=== PATIENT | female | born 1950 | race African-American/Black ===

== ENCOUNTER 2020-05-26 14:15 | Inpatient (IN) ==
[2020-05-26] MEDS ORDERED: 0.9 % Sodium Chloride 1,000 ML IVC ONE ×2 (15:05→20:55)
[2020-05-26 15:58] LABS: Basophils % 0.1 %; Eosinophils % 0.4 %
[2020-05-26 16:00] LABS: Hematocrit 37.7 % (35.3-44.9); Hemoglobin 12.1 g/dL (11.5-15.4); Immature Granulocytes % 1.1 % (0-4); Immature Platelets 8.9 % (1.1-6.1); Lymphocytes # 0.8 K/mcL (0.6-4.6); Lymphocytes % 9.5 %; Mean Corpuscular HGB Conc 32.1 g/dL (31.6-35.5); Mean Corpuscular Hemoglobin 31.7 pg (28.0-33.3); Mean Corpuscular Volume 98.7 fL (83.0-100.0); Mean Platelet Volume 12.7 fL (9.4-12.4); Monocytes # 1.5 K/mcL (0.0-1.3); Neutrophils # 5.5 K/mcL (1.6-8.9); Red Blood Count 3.82 M/mcL (3.82-4.97); Red Cell Distribution Width 14.4 % (11.5-14.5); Segmented Neutrophils % 69.9 %; White Blood Count 7.9 K/mcL (4.3-11.1)
[2020-05-26 16:06] LABS: INR 1.2; Prothrombin Time 13.8 Seconds (9.4-12.1)
[2020-05-26 16:09] LABS: Activated Partial Thrombo Time 86.5 Seconds (26.0-36.0)
[2020-05-26 16:13] LABS: BUN/Creatinine Ratio 15 (6-26); Blood Urea Nitrogen 34 mg/dL (8-23); Calcium 8.6 mg/dL (8.6-10.3); Carbon Dioxide 29 mEq/L (23-29); Chloride 99 mEq/L (98-107); Glucose 212 mg/dL (70-105); Osmolality,Calculated 296 (280-300); Potassium 3.5 mEq/L (3.5-5.1); Sodium 136 mEq/L (136-145); Troponin I < 0.03 ng/mL (< 0.04); eGFR For African Americans 25 (> 60); eGFR For Non-African Americans 21 (> 60)
[2020-05-26 16:17] LABS: Platelet Count 66 K/mcL (140-400)
[2020-05-26 16:18] LABS: Platelet Estimate Decreased (Normal)
[2020-05-26] MEDS ORDERED: MetroNIDAZOLE 500 MG/100 ML 500 MG/100 ML BAG IVPB ONE (18:15)
[2020-05-26 19:29] LABS: Adenovirus F 40/41 PCR Not detected (Not detect); Astrovirus PCR Not detected (Not detect); C.difficile Toxin A/B Gene PCR Not detected (Not detect); Campylobacter by PCR DETECTED (Not detect); Cryptosporidium by PCR Not detected (Not detect); Cyclospora cayetanensis PCR Not detected (Not detect); E. coli O157 by PCR Not detected (Not detect); Entamoeba histolytica PCR Not detected (Not detect); Enteroaggregative E.coli(EAEC) Not detected (Not detect); Enteropathogenic E.coli(EPEC) Not detected (Not detect); Enterotoxigenic E.coli (ETEC) Not detected (Not detect); Giardia lamblia PCR Not detected (Not detect); Norovirus GI/GII PCR Not detected (Not detect); Plesiomonas shigelloides PCR Not detected (Not detect); Rotavirus A PCR Not detected (Not detect); Salmonella PCR Not detected (Not detect); Sapovirus PCR Not detected (Not detect); Shig/EnteroinvasiveE coli EIEC Not detected (Not detect); Shigalike tox-prod E coli STEC Not detected (Not detect); Vibrio PCR Not detected (Not detect); Vibrio cholerae PCR Not detected (Not detect); Yersinia enterocolitica PCR Not detected (Not detect)
[2020-05-26 19:43] LABS: Bacteria,Urine Moderate per hpf (None-Few); Bilirubin,Urine Negative (Negative); Blood,Urine Moderate (Negative); Clarity,Urine Ex.Turbid (Clear); Color,Urine Dark-Yellow (Yellow); Glucose,Urine (UA) Normal (Normal); Ketones,Urine Negative (Negative); Leukocyte Esterase,Urine Large (Negative); Nitrite,Urine Negative (Negative); PH,Urine 5.5 pH Units (5.0-8.0); Protein,Urine 200 mg/dL (Neg-Trace); Renal Epithelial Cells,Urine Few per hpf (None-Few); Specific Gravity,Urine 1.012 (1.010-1.025); Squamous Epithelial Cell,Urine Moderate per hpf (None-Few); WBC,Urine TNTC per hpf (0-3)
[2020-05-26] MEDS ORDERED: D5% in Water 1,000 ML IVC PRN (20:57)
[2020-05-26] MEDS ORDERED: Dextrose Gel 15 GM/37.5 ML TUBE PO PRN ×2 (20:57)
[2020-05-26] MEDS ORDERED: *HR* Dextrose 50 % in Water (Vial) 50 ML VIAL IVP PRN (20:57)
[2020-05-26] MEDS ORDERED: Ondansetron 4 MG/2 ML VIAL IVP PRN (20:58)
[2020-05-26] MEDS ORDERED: Melatonin 3 MG TABLET PO PRN (20:58)
[2020-05-26] MEDS ORDERED: Naloxone 0.4 MG/ML INJ IVP PRN (20:58)
[2020-05-26] MEDS: Insulin LISPRO 300 UNITS/3 ML VIAL SUBQ SCH (22:47)
[2020-05-27] MEDS: 0.9 % Sodium Chloride 1,000 ML IVC SCH ×4 (00:05→18:13)
[2020-05-27 08:53] LABS: Mean Platelet Volume 12.3 fL (9.4-12.4); Red Cell Distribution Width 14.6 % (11.5-14.5)
[2020-05-27 08:55] LABS: Hemoglobin 10.2 g/dL (11.5-15.4); Immature Platelets 8.4 % (1.1-6.1); Mean Corpuscular HGB Conc 31.9 g/dL (31.6-35.5); Mean Corpuscular Hemoglobin 31.4 pg (28.0-33.3); Mean Corpuscular Volume 98.5 fL (83.0-100.0); Red Blood Count 3.25 M/mcL (3.82-4.97)
[2020-05-27 08:56] LABS: Platelet Count 54 K/mcL (140-400)
[2020-05-27 09:00] LABS: INR 1.3; Prothrombin Time 14.7 Seconds (9.4-12.1)
[2020-05-27 09:08] LABS: Activated Partial Thrombo Time 27.6 Seconds (26.0-36.0)
[2020-05-27 09:12] LABS: Albumin 3.3 g/dL (3.5-5.7); Albumin/Globulin Ratio 0.8 (1.1-2.2); Bilirubin,Total 1.1 mg/dL (0.3-1.0); Calcium 7.8 mg/dL (8.6-10.3); Globulin 4.4 g/dL (2.4-3.5); Magnesium 1.8 mg/dL (1.6-2.6); Potassium 3.8 mEq/L (3.5-5.1); Total Protein 7.7 g/dL (6.4-8.9)
[2020-05-27] MEDS: Insulin LISPRO 300 UNITS/3 ML VIAL SUBQ SCH ×4 (09:16→20:42)
[2020-05-27 09:43] LABS: Lymphocytes # 1.1 K/mcL (0.6-4.6); Monocytes # 1.6 K/mcL (0.0-1.3); Neutrophils # 7.3 K/mcL (1.6-8.9); Platelet Estimate Decreased (Normal)
[2020-05-27 09:44] LABS: Polychromasia 1+ (Not Present)
[2020-05-27] MEDS: *HR* OxyCODONE Immed Rel 5 MG TABLET PO PRN ×2 (12:23→20:42)
[2020-05-27 18:32] LABS: Estimated Average Glucose 235 mg/dl; Hemoglobin A1C 9.8 %
[2020-05-28 04:28] LABS: Hepatitis B Surface Antigen Nonreactive (Nonreactive)
[2020-05-28 04:56] LABS: Hepatitis C Virus Antibody Nonreactive (Nonreactive)
[2020-05-28 04:57] LABS: Hepatitis B Core IgM Nonreactive (Nonreactive)
[2020-05-28 04:58] LABS: Hepatitis A Antibody IgM Nonreactive (Nonreactive)
[2020-05-28] MEDS: 0.9 % Sodium Chloride 1,000 ML IVC SCH (06:00)
[2020-05-28] MEDS: Insulin LISPRO 300 UNITS/3 ML VIAL SUBQ SCH ×4 (09:21→21:54)
[2020-05-28] MEDS: *HR* OxyCODONE Immed Rel 5 MG TABLET PO PRN ×3 (09:23→23:12)
[2020-05-28 10:38] LABS: Calcium 7.9 mg/dL (8.6-10.3); Potassium 4.3 mEq/L (3.5-5.1)
[2020-05-28] MEDS: Pregabalin 50 MG CAPSULE PO SCH ×2 (14:23→21:53)
[2020-05-28] MEDS: Insulin DETEMIR 100 UNIT/ML X5UNITS SUBQ SCH ×2 (14:48→21:54)
[2020-05-28] MEDS: QUEtiapine Fumarate 25 MG TABLET PO SCH (21:54)
[2020-05-29 07:47] LABS: Eosinophils % 0.5 %; Hematocrit 28.4 % (35.3-44.9); Hemoglobin 8.7 g/dL (11.5-15.4); Immature Granulocytes % 0.7 % (0-4); Lymphocytes # 0.9 K/mcL (0.6-4.6); Lymphocytes % 21.8 %; Mean Corpuscular HGB Conc 30.6 g/dL (31.6-35.5); Mean Corpuscular Volume 101.1 fL (83.0-100.0); Mean Platelet Volume 12.9 fL (9.4-12.4); Monocytes # 0.8 K/mcL (0.0-1.3); Monocytes % 19.9 %; Platelet Count 53 K/mcL (140-400); Red Blood Count 2.81 M/mcL (3.82-4.97); Red Cell Distribution Width 14.8 % (11.5-14.5); Segmented Neutrophils % 57.1 %
[2020-05-29 07:49] LABS: Neutrophils # 2.3 K/mcL (1.6-8.9); White Blood Count 4.1 K/mcL (4.3-11.1)
[2020-05-29] MEDS: Pregabalin 50 MG CAPSULE PO SCH ×3 (08:29→21:31)
[2020-05-29] MEDS: Magnesium Oxide 400 MG TABLET PO SCH (08:29)
[2020-05-29] MEDS: Insulin LISPRO 300 UNITS/3 ML VIAL SUBQ SCH ×4 (08:29→21:30)
[2020-05-29] MEDS: Insulin DETEMIR 100 UNIT/ML X5UNITS SUBQ SCH ×2 (08:29→21:28)
[2020-05-29] MEDS ORDERED: Metoprolol XL (24 HR) Succ 50 MG TAB.ER.24H PO SCH ×2 (09:00)
[2020-05-29] MEDS ORDERED: lisinopriL 5 MG TABLET PO SCH (09:00)
[2020-05-29] MEDS: *HR* OxyCODONE Immed Rel 5 MG TABLET PO PRN ×2 (12:00→18:46)
[2020-05-29] MEDS: Cefdinir 300 MG CAPSULE PO SCH ×2 (15:00→21:31)
[2020-05-29 15:56] LABS: Hematocrit 28.1 % (35.3-44.9); Hemoglobin 9.2 g/dL (11.5-15.4)
[2020-05-29] MEDS: QUEtiapine Fumarate 25 MG TABLET PO SCH (21:31)
[2020-05-30] MEDS: *HR* OxyCODONE Immed Rel 5 MG TABLET PO PRN ×2 (05:39→20:43)
[2020-05-30 06:38] LABS: Eosinophils % 0.5 %; Hemoglobin 8.4 g/dL (11.5-15.4); Mean Corpuscular Volume 101.5 fL (83.0-100.0); Red Cell Distribution Width 14.6 % (11.5-14.5)
[2020-05-30 06:41] LABS: Hematocrit 27.2 % (35.3-44.9); Immature Granulocytes % 0.8 % (0-4); Immature Platelets 9.5 % (1.1-6.1); Lymphocytes # 0.9 K/mcL (0.6-4.6); Lymphocytes % 25.1 %; Mean Corpuscular HGB Conc 30.9 g/dL (31.6-35.5); Mean Corpuscular Hemoglobin 31.3 pg (28.0-33.3); Mean Platelet Volume 12.2 fL (9.4-12.4); Monocytes # 0.8 K/mcL (0.0-1.3); Monocytes % 20.8 %; Platelet Count 66 K/mcL (140-400); Red Blood Count 2.68 M/mcL (3.82-4.97); Segmented Neutrophils % 52.8 %; White Blood Count 3.7 K/mcL (4.3-11.1)
[2020-05-30 06:58] LABS: Albumin/Globulin Ratio 0.7 (1.1-2.2); Bilirubin,Direct 0.3 mg/dL (0.0-0.2); Bilirubin,Indirect 0.4 mg/dL (0.0-1.0); Bilirubin,Total 0.7 mg/dL (0.3-1.0); Calcium 8.2 mg/dL (8.6-10.3); Globulin 4.2 g/dL (2.4-3.5); Potassium 4.4 mEq/L (3.5-5.1); Total Protein 7.2 g/dL (6.4-8.9)
[2020-05-30 09:49] LABS: % Iron Saturation 20 % (15-50); Ferritin 212 ng/mL (10-120); Iron 39 mcg/dL (50-170); Transferrin 142 mg/dL (203-362)
[2020-05-30 09:53] LABS: Folate 15.4 ng/mL (3.0-16.0)
[2020-05-30] MEDS ORDERED: Insulin DETEMIR 100 UNIT/ML X5UNITS SUBQ ONE (10:03)
[2020-05-30] MEDS: Insulin LISPRO 300 UNITS/3 ML VIAL SUBQ SCH ×4 (10:12→20:40)
[2020-05-30] MEDS: Pregabalin 50 MG CAPSULE PO SCH ×3 (10:13→20:41)
[2020-05-30] MEDS: Furosemide 20 MG TABLET PO SCH (10:13)
[2020-05-30] MEDS: Cefdinir 300 MG CAPSULE PO SCH ×2 (10:13→20:40)
[2020-05-30] MEDS: Magnesium Oxide 400 MG TABLET PO SCH (10:13)
[2020-05-30] MEDS: Metoprolol XL (24 HR) Succ 50 MG TAB.ER.24H PO SCH (10:13)
[2020-05-30] MEDS: Insulin DETEMIR 100 UNIT/ML X5UNITS SUBQ SCH ×2 (10:44→20:39)
[2020-05-30 19:09] LABS: Bacteria,Urine Few per hpf (None-Few); Bilirubin,Urine Negative (Negative); Blood,Urine Negative (Negative); Clarity,Urine Turbid (Clear); Color,Urine Light-Yellow (Yellow); Glucose,Urine (UA) >=1000 mg/dL (Normal); Ketones,Urine Negative (Negative); Leukocyte Esterase,Urine Large (Negative); Mucus,Urine Few per lpf (None-Few); Nitrite,Urine Negative (Negative); Protein,Urine Trace mg/dL (Neg-Trace); RBC,Urine 0-3 per hpf (0-3); Squamous Epithelial Cell,Urine Moderate per hpf (None-Few); Urobilinogen,Urine Normal (Normal); WBC,Urine TNTC per hpf (0-3)
[2020-05-30] MEDS: QUEtiapine Fumarate 25 MG TABLET PO SCH (20:41)
[2020-05-31 05:40] LABS: Basophils % 0.3 %; Eosinophils % 0.8 %; Immature Granulocytes % 0.8 % (0-4)
[2020-05-31 05:42] LABS: Hematocrit 27.2 % (35.3-44.9); Hemoglobin 8.6 g/dL (11.5-15.4); Lymphocytes # 1.1 K/mcL (0.6-4.6); Lymphocytes % 27.9 %; Mean Corpuscular HGB Conc 31.6 g/dL (31.6-35.5); Mean Corpuscular Volume 98.2 fL (83.0-100.0); Mean Platelet Volume 11.8 fL (9.4-12.4); Monocytes # 0.8 K/mcL (0.0-1.3); Monocytes % 21.6 %; Neutrophils # 1.9 K/mcL (1.6-8.9); Red Blood Count 2.77 M/mcL (3.82-4.97); Red Cell Distribution Width 14.4 % (11.5-14.5); Segmented Neutrophils % 48.6 %; White Blood Count 3.8 K/mcL (4.3-11.1)
[2020-05-31 07:20] LABS: Platelet Count 82 K/mcL (140-400)
[2020-05-31 07:43] LABS: Calcium 8.5 mg/dL (8.6-10.3); Potassium 3.9 mEq/L (3.5-5.1)
[2020-05-31] MEDS ORDERED: calcitrioL 0.25 MCG CAPSULE PO SCH (09:00)
[2020-05-31] MEDS: Insulin LISPRO 300 UNITS/3 ML VIAL SUBQ SCH ×2 (09:56→13:29)
[2020-05-31] MEDS: Cefdinir 300 MG CAPSULE PO SCH (09:58)
[2020-05-31] MEDS: Furosemide 20 MG TABLET PO SCH (09:59)
[2020-05-31] MEDS: Metoprolol XL (24 HR) Succ 50 MG TAB.ER.24H PO SCH (09:59)
[2020-05-31] MEDS: Magnesium Oxide 400 MG TABLET PO SCH (09:59)
[2020-05-31] MEDS: Pregabalin 50 MG CAPSULE PO SCH ×2 (10:03→14:55)
[2020-05-31] MEDS: Insulin DETEMIR 100 UNIT/ML X5UNITS SUBQ SCH (10:03)
[2020-05-31] MEDS: *HR* OxyCODONE Immed Rel 5 MG TABLET PO PRN (10:03)
[2020-05-31 14:47] VITALS: BP 156/74
[2020-05-31 14:52] LABS: Influenza A PCR Negative (Negative); Influenza B PCR Negative (Negative); Resp. Syncytial Virus PCR Negative (Negative); SARS-CoV-2 by PCR (In House) Negative (Negative)
[2020-05-31] MEDS ORDERED: Insulin LISPRO 300 UNITS/3 ML VIAL SUBQ SCH (17:00)
== END 2020-05-31 17:43 | disposition critical access hospital (66) | DRG 372 ==
LOC: 3ANU 14:15 → EMEROOARM 14:15 → 3ANU 21:25 → SUATTDRO 05-27 16:42
PROVIDERS: ADMIT Family Medicine; ATTEND Internal Medicine